=== PATIENT | male | born 1990 | race Caucasian/White ===

== ENCOUNTER 2020-10-22 14:12 | Emergency (ER) | payer SELFPAY ==
[~2020-10-22] VITALS: Ht 177.8 cm; Wt 82.0 kg
[~2020-10-22 14:12] MED LIST: NAPROSYN500 MG PO; NO HOME MEDS; XANAX0.25 MG PO
[2020-10-22] MEDS ORDERED: OFLOXACIN0.3 % OS ×2 (15:11→15:13)
[2020-10-22 15:27] VITALS: BP 116/72
== END 2020-10-22 15:34 | disposition home or self-care (01) | DRG 125 ==
LOC: ED 14:12
DX: S05.02XA Injury of conjunctiva and corneal abrasion without foreign body, left eye, initial encounter (principal); F41.9 Anxiety disorder, unspecified; F17.210 Nicotine dependence, cigarettes, uncomplicated; W54.8XXA Other contact with dog, initial encounter; Z88.1 Allergy status to other antibiotic agents